=== PATIENT | female | born 1955 | race Two or more races ===

== ENCOUNTER 2024-08-04 06:22 | Day surgery (SDC) | payer OTHER, MEDICAID ==
[~2024-08-04] VITALS: Ht 170.2 cm; Wt 69.9 kg
[2024-08-04] VITALS (9 sets, daily range): BP systolic 106–127; BP diastolic 57–68; PULSE 64–80; RESP 14–20; TEMP 97.7; O2SAT 96–98
[~2024-08-04 06:22] MED LIST: AML5T PO; ASPI325T6 PO; ATOR40TA52 PO; CLOP75TA28 PO; ENAL1TAB46 PO; HYDR-4902 PO; LORA-622 PO; METH-1182 PO; METO-289 PO; PEN400T PO; RANO500T3 PO; THYR30TA PO
[2024-08-04] MEDS ORDERED: IODIXANOL 320MG/ML 100ML BTL IV ONE ×2 (07:33→08:16)
[2024-08-04] MEDS ORDERED: HEPARIN IN NS 1000Units/500mL 1,500 ML ONE (07:33)
[2024-08-04] MEDS ORDERED: ANGIOMAX 250 MG VIAL IV ONE (08:15)
[2024-08-04] MEDS ORDERED: HEPARIN SODIUM (PORCINE) 5000 UNITS/ML 1ML VIAL ONE (08:15)
[2024-08-04] MEDS ORDERED: LIDOCAINE 2%HCL (LOCAL ANESTH.) INJ 20ML MDV ONE (08:16)
[2024-08-04] MEDS ORDERED: VERAPAMIL 2.5MG/ML INJ 2ML VIAL IV ONE (08:16)
[2024-08-04] MEDS ORDERED: SODIUM CHL 0.9% 0 ML ONE (08:16)
[2024-08-04] MEDS ORDERED: fentaNYL CITRATE 100 MCG/2 ML VL ONE (08:16)
[2024-08-04] MEDS ORDERED: MIDAZOLAM HCL 2MG/2ML 2ml VIAL (1mg/ml) ONE (08:16)
== END 2024-08-04 11:04 | disposition home or self-care (01) ==
LOC: CATH 06:22
PROVIDERS: ATTEND Internal Medicine Cardiovascular Disease
DX: R06.09 Other forms of dyspnea (principal); I25.10 Atherosclerotic heart disease of native coronary artery without angina pectoris; I10 Essential (primary) hypertension; E78.5 Hyperlipidemia, unspecified; F17.210 Nicotine dependence, cigarettes, uncomplicated; Z98.61 Coronary angioplasty status; Z95.1 Presence of aortocoronary bypass graft
CPT/HCPCS: 93458; C1894; J1644; J2250; J3010; J7030; Q9967; 99152